=== PATIENT | male | born 1990 | race Two or more races ===

== ENCOUNTER 2020-08-17 07:08 | Emergency (ER) | payer OTHER ==
[~2020-08-17] VITALS: Ht 185.4 cm; Wt 104.3 kg
[2020-08-17] MEDS ORDERED: DOLOGEN CAPLET1 EACH PO (10:59)
== END 2020-08-17 11:57 | disposition home or self-care (01) ==
LOC: ER 07:08
DX: B34.9 Viral infection, unspecified (principal); A90 Dengue fever [classical dengue]; Z20.828 Contact with and (suspected) exposure to other viral communicable diseases

== ENCOUNTER 2024-09-11 22:35 | Emergency (ER) | payer OTHER ==
[~2024-09-11] VITALS: Ht 182.9 cm; Wt 104.3 kg
[~2024-09-11 22:35] MED LIST: DOLOGEN CAPLET1 EACH PO
[2024-09-12] MEDS ORDERED: METOCLOPRAMIDE HCL 5 MG/ML VIAL IM STA (02:11)
[2024-09-12] MEDS ORDERED: METOCLOPRAMIDE HCL 5 MG/ML VIAL ONE (02:15)
[2024-09-12] MEDS ORDERED: MAGNESIUM HYDROXIDE 400 MG/5 ML ML PO STA (02:27)
[2024-09-12] MEDS ORDERED: LACTULOSE 20 G/30 ML BLIST.PACK PO STA (02:27)
[2024-09-12] MEDS ORDERED: LACTULOSE 20 G/30 ML BLIST.PACK ONE (02:29)
[2024-09-12] MEDS ORDERED: MAGNESIUM HYDROXIDE 30 ML BLIST.PACK PO ONE (02:29)
== END 2024-09-12 02:32 | disposition home or self-care (01) ==
LOC: ER 22:46
DX: K59.01 Slow transit constipation (principal)